=== PATIENT | female | born 1985 | race Caucasian/White ===

== ENCOUNTER 2017-02-15 06:30 | Inpatient (IN) | payer OTHER ==
[~2017-02-15] VITALS: Ht 167.6 cm; Wt 79.3 kg
[2017-02-15] MEDS: LACTATED RINGERS 1,000 ML IV SCH ×3 (06:45→10:11)
[2017-02-15] MEDS ORDERED: D5%-LACTATED RINGERS 1,000 ML IV SCH (07:03)
[2017-02-15] MEDS ORDERED: OXYTOCIN 30U/ 0.9% NaCL 500ML 500 ML IV PRN (07:03)
[2017-02-15] MEDS ORDERED: OXYTOCIN 30U/ 0.9% NaCL 500ML 500 ML IV ONE (07:03)
[2017-02-15] MEDS ORDERED: ONDANSETRON 2MG/ML, 2ML IVPush PRN (07:30)
[2017-02-15] MEDS ORDERED: FENTANYL PF 100 MCG/2ML IVPush PRN (07:30)
[2017-02-15] MEDS ORDERED: FENTANYL PF 100 MCG/2ML IV PRN (07:30)
[2017-02-15] MEDS ORDERED: NEWBORN KIT ONE (07:31)
[2017-02-15] MEDS ORDERED: PNV11TAB PO (07:45)
[2017-02-15] MEDS ORDERED: LIDOCAINE 1%, 20ML ONE (08:24)
[2017-02-15] MEDS ORDERED: MISOPROSTOL 200 MCG TABLET ONE (08:24)
[2017-02-15] MEDS ORDERED: OXYTOCIN 30U/ 0.9% NaCL 500ML 500 ML ONE (08:25)
[2017-02-15] MEDS ORDERED: FENTANYL PF 100 MCG/2ML ONE ×2 (08:38→19:03)
[2017-02-15] MEDS ORDERED: FENTANYL/BUPIV./NS/PF 250 ML EPIDCONT ONE (08:38)
[2017-02-15] MEDS ORDERED: BUPIVACAINE 0.25% ONE (08:38)
[2017-02-15] MEDS ORDERED: LACTATED RINGERS 1,000 ML IV SCH (10:20)
[2017-02-15] MEDS ORDERED: FENTANYL/BUPIV./NS/PF 250 ML EPIDCONT SCH (10:20)
[2017-02-15] MEDS ORDERED: LACTATED RINGERS 1,000 ML IVBOLUS PRN (10:30)
[2017-02-15] MEDS ORDERED: ONDANSETRON 2MG/ML, 2ML ONE (11:03)
[2017-02-15 19:33] VITALS: BP 101/56
[2017-02-15] MEDS ORDERED: DOCUSATE 100 MG CAPSULE PO PRN (21:00)
[2017-02-15] MEDS ORDERED: IBUPROFEN 600 MG TABLET PO PRN (21:00)
[2017-02-15] MEDS: OXYTOCIN 30U/ 0.9% NaCL 500ML 500 ML IV SCH (21:00)
[2017-02-15] MEDS ORDERED: ONDANSETRON 2MG/ML, 2ML IV PRN (21:00)
[2017-02-15] MEDS ORDERED: METOCLOPRAMIDE 5 MG/ML, 2ML IV PRN (21:00)
[2017-02-15] MEDS ORDERED: HYDROcodone/APAP 5/325 TABLET PO PRN ×2 (21:00)
[2017-02-15] MEDS ORDERED: CALCIUM CARBONATE 500 MG TAB.CHEW PO PRN (21:00)
[2017-02-15] MEDS ORDERED: ACETAMINOPHEN 325 MG TABLET PO PRN (21:00)
[2017-02-16] VITALS: BP 107/69
[2017-02-16 05:00] VITALS: BP 118/73
[2017-02-16] MEDS: OXYTOCIN 30U/ 0.9% NaCL 500ML 500 ML IV SCH ×2 (07:00→17:00)
[2017-02-16 07:59] VITALS: BP 112/76
[2017-02-16] MEDS ORDERED: PRENATAL VIT/IRON/FA 1 EACH TABLET PO SCH (09:00)
[2017-02-16] MEDS ORDERED: EPHEDRINE 50 MG/ML, 1ML ONE (09:00)
[2017-02-16 11:26] VITALS: BP 115/72
[2017-02-16 15:49] VITALS: BP 110/74
[2017-02-16 19:50] VITALS: BP 130/81
[2017-02-17] MEDS: OXYTOCIN 30U/ 0.9% NaCL 500ML 500 ML IV SCH (03:00)
[2017-02-17] MEDS ORDERED: IBUP-1222 PO (05:09)
[2017-02-17] MEDS ORDERED: DOCU-30 PO (05:11)
[2017-02-17 08:02] VITALS: BP 120/73
== END 2017-02-17 10:49 | disposition home or self-care (01) | DRG 775 ==
LOC: LDOP 06:30 → LDIP 06:34 → 2NW 23:52
PROVIDERS: ADMIT Specialist; ATTEND Specialist
PROC: 10E0XZZ Delivery of Products of Conception, External Approach (ICD-10-PCS; principal; 2017-02-15)
PROC: 00HU33Z Insertion of Infusion Device into Spinal Canal, Percutaneous Approach (ICD-10-PCS; 2017-02-15)
PROC: 3E0R3CZ (ICD-10-PCS; 2017-02-15)
DX: O80 Encounter for full-term uncomplicated delivery (principal); Z37.0 Single live birth; Z3A.39 39 weeks gestation of pregnancy; Z87.59 Personal history of other complications of pregnancy, childbirth and the puerperium
CPT/HCPCS: 36415; 85025; 86850; 86900; J2405; J2590; J3010; J7120; J7121